=== PATIENT | female | born 1970 | race Caucasian/White ===

== ENCOUNTER 2018-04-05 18:48 | Emergency (ER) | payer MEDICAID, OTHER ==
[~2018-04-05] VITALS: Ht 167.6 cm; Wt 73.9 kg
[2018-04-05 19:17] VITALS: BP 120/77
[2018-04-06] MEDS ORDERED: KETOROLAC 60 MG/2 ML VIAL IM ONE (00:10)
[2018-04-06 00:35] VITALS: BP 113/79
== END 2018-04-06 00:35 | disposition home or self-care (01) ==
LOC: MED 18:48
DX: N39.0 Urinary tract infection, site not specified (principal); J11.1 Influenza due to unidentified influenza virus with other respiratory manifestations
CPT/HCPCS: 81002; 81025; 96372; 99283; J1885